=== PATIENT | male | born 1985 | race African-American/Black ===

== ENCOUNTER 2018-12-02 13:00 | Emergency (ER) | payer OTHER ==
[~2018-12-02] VITALS: Ht 167.6 cm; Wt 63.5 kg
[2018-12-02] MEDS ORDERED: PEDIALYTE1000 ML (16:40)
== END 2018-12-02 20:01 | disposition home or self-care (01) ==
LOC: ER 13:00
DX: K29.20 Alcoholic gastritis without bleeding (principal); E86.0 Dehydration